=== PATIENT | male | born 1945 | race Caucasian/White ===

== ENCOUNTER 2017-04-26 12:15 | Inpatient (IN) | payer OTHER ==
[~2017-04-26] VITALS: Ht 160 cm; Wt 60.3 kg
[2017-04-26] MEDS ORDERED: SIMVASTATIN20 MG PO (13:55)
[2017-05-03] MEDS ORDERED: TYLENOL ARTHRI650 MG PO ×2 (09:50)
== END 2017-05-03 10:45 | DRG 395 ==
LOC: SURH 05-01 06:42 → O/R 05-01 06:42 → SURH 05-01 07:00
PROVIDERS: Surgery
PROC: 3E0T3BZ Introduction of Anesthetic Agent into Peripheral Nerves and Plexi, Percutaneous Approach (ICD-10-PCS; 2017-05-01)
PROC: 0DBP8ZZ Excision of Rectum, Via Natural or Artificial Opening Endoscopic (ICD-10-PCS; principal; 2017-05-01 07:00)
DX: D12.8 Benign neoplasm of rectum (principal); K62.89 Other specified diseases of anus and rectum; R50.82 Postprocedural fever

== ENCOUNTER 2017-04-30 09:41 | Day surgery (SDC) | payer OTHER ==
[~2017-04-30 09:41] MED LIST: SIMVASTATIN20 MG PO
== END 2017-04-30 14:10 | disposition home or self-care (01) ==
LOC: AMB-ENDOS 09:41
DX: D12.8 Benign neoplasm of rectum (principal)